=== PATIENT | female | born 1955 | race Hispanic/Latino ===

== ENCOUNTER 2016-05-11 18:52 | Emergency (ER) | payer SELFPAY ==
[2016-05-11 19:49] LABS: Basophils % (Auto) 0.7 % (0.0-1.8); Eosinophils % (Auto) 0.7 % (0.0-4.3); Hemoglobin 13.6 gm/dl (10.1-14.3); Mean Corpuscular HGB Conc 34 % (30-34); Mean Corpuscular Hemoglobin 30 pg (28-32); Mean Corpuscular Volume 87 fl (79-97); Platelet Count 248 K/mm3 (140-440); Red Blood Count 4.59 M/mm3 (3.65-5.03); Red Cell Distribution Width 12.5 % (13.2-15.2); White Blood Count 12.3 K/mm3 (4.5-11.0)
[2016-05-11 20:11] LABS: Alanine Aminotransferase 13 units/L (7-56); Albumin/Globulin Ratio 1.4 %; Alkaline Phosphatase 143 units/L (35-129); BUN/Creatinine Ratio 8.75; Bilirubin,Total 0.4 mg/dL (0.1-1.2); Blood Urea Nitrogen 7 mg/dL (7-17); Calcium 8.9 mg/dL (8.4-10.2); Carbon Dioxide 21 mmol/L (22-30); Chloride 95.1 mmol/L (98-107); Creatine Kinase 51 units/L (30-135); Glucose 112 mg/dL (65-100); Lipase 30 units/L (13-60); Potassium 3.1 mmol/L (3.6-5.0); Sodium 134 mmol/L (137-145); Total Protein 6.8 g/dL (6.3-8.2)
[2016-05-11 20:13] LABS: Anion Gap 21 mmol/L
[2016-05-11] MEDS ORDERED: K-DUR PO ONE (20:31)
[2016-05-11] MEDS ORDERED: MORPHINE IV ONE (20:54)
[2016-05-11] MEDS ORDERED: ZOFRAN IV ONE (20:54)
[2016-05-11] MEDS ORDERED: NACL 0.9% 1000 ML 1,000 ML IV ONE (20:56)
[2016-05-11] MEDS ORDERED: ATIVAN IV ONE (20:56)
--- NOTE | 2016-05-11 20:59 | Emergency Department Report ---
ED Abdominal Pain HPI - General Chief Complaint: Abdominal Pain Stated Complaint: SHAKING Time Seen by Provider: 05/11/16 20:26 Source: patient Mode of arrival: Wheelchair Limitations: No Limitations - History of Present Illness Initial Comments: 61 yo female with a past medical history of GERD, thyroid cancer, hypertension, previous cholecystectomy, appendectomy, thyroidectomy, and C-sections surgery presents to the hospital complaints of abdominal pain 1 week. Patient thinks that symptoms associated with her metoprolol. She has been on metoprolol for the past 5-6 weeks. Last week one hour after taking the medication she developed severe abdominal pain, nausea, tremors, and lightheadedness. Patient last took metoprolol 4 days ago that she thought the symptoms were caused by the medication. She continues to have symptoms despite stopping the medication. Patient appears anxious. She complains of sharp chest pain worse with movement. She feels a tight band around her upper abdomen area with maximum tenderness in the epigastric area. To also have a constant intermittent sharp generalized abdominal pain. Decreased by mouth intake secondary to nausea. She denies vomiting, diarrhea, melena, hematochezia. Patient states she's having intermittent episodes of shaking. PMD Franco Campbell She was recently admitted here March 22 the by me for chest pain. Diagnosis of GERD. Known hiatal hernia as well. Stress test was negative. Patient states she was not prescribed a PPI or H2 divine for has been taking ranitidine [id number] intermittently since discharge. - Related Data Home Medications Medication Instructions Recorded Confirmed Last Taken Levothyroxine [Synthroid] 200 mcg PO QAM 03/23/16 03/23/16 03/22/16 Losartan/Hydrochlorothiazide 1 each PO DAILY 03/23/16 03/23/16 03/22/16 [Losartan-Hctz 50-12.5 mg Tab] Previous Rx's Medication Instructions Recorded Last Taken Type Aspirin [Aspirin BABY CHEW TAB] 81 mg PO QDAY #30 tab.chew 03/23/16 Unknown Rx ALPRAZolam [Xanax TAB] 0.5 mg PO TID PRN #10 tab 05/11/16 Unknown Rx Ondansetron [Zofran Odt] 4 mg PO Q8HR PRN #20 tab.rapdis 05/11/16 Unknown Rx oxyCODONE /ACETAMINOPHEN [Percocet 1 tab PO Q6HR PRN #20 tablet 05/11/16 Unknown Rx 5/325] Potassium Chloride [K-Dur] 20 meq PO QDAY #3 tablet 05/12/16 Unknown Rx Allergies Allergy/AdvReac Type Severity Reaction Status Date / Time codeine Allergy Angioedema Verified 02/11/16 13:46 ED Review of Systems ROS: Stated complaint: SHAKING Other details as noted in HPI Comment: All other systems reviewed and negative Other: Constitutional: No fevers chills Eyes: No eye pain visual changes ENT: No ear pain or throat pain Neck: Denies pain Respiratory: Denies cough wheezing shortness of breath Cardiovascular: Denies palpitations GI: As per HPI : Denies dysuria Musculoskeletal: Denies back pain, joint swelling Skin: Denies rash, lesions, erythema Neurologic: Denies headache, numbness, weakness. reports intermittent tremor and shaking Psychiatric: Anxious Hematological/lymphatic: Denies easy bruising, lymphadenopathy ED Past Medical Hx - Past Medical History Hx Hypertension: Yes Hx Congestive Heart Failure: No Hx Diabetes: No Hx GERD: Yes Hx Asthma: No Hx COPD: No - Surgical History Hx Appendectomy: Yes Additional Surgical History: Gallbladder, thyroid, hysterectomy, - Social History Smoking Status: Former Smoker - Medications Home Medications: Home Medications Medication Instructions Recorded Confirmed Last Taken Type Aspirin [Aspirin BABY CHEW TAB] 81 mg PO QDAY #30 tab.chew 03/23/16 Unknown Rx Levothyroxine [Synthroid] 200 mcg PO QAM 03/23/16 03/23/16 03/22/16 History Losartan/Hydrochlorothiazide 1 each PO DAILY 03/23/16 03/23/16 03/22/16 History [Losartan-Hctz 50-12.5 mg Tab] ALPRAZolam [Xanax TAB] 0.5 mg PO TID PRN #10 tab 05/11/16 Unknown Rx Ondansetron [Zofran Odt] 4 mg PO Q8HR PRN #20 tab.rapdis 05/11/16 Unknown Rx oxyCODONE /ACETAMINOPHEN [Percocet 1 tab PO Q6HR PRN #20 tablet 05/11/16 Unknown Rx 5/325] Potassium Chloride [K-Dur] 20 meq PO QDAY #3 tablet 05/12/16 Unknown Rx ED Physical Exam - General Limitations: No Limitations - Other Other exam information: General: No limitations, patient is alert in no acute distress Head exam: Atraumatic, normocephalic Eyes exam: Normal appearance, pupils equal reactive to light, extraocular movements intact ENT: Moist mucous membrane, normal oropharynx Neck exam: Normal inspection, full range of motion, no meningismus nontender Respiratory exam: Clear to auscultation bilateral, no wheezes, rales, crackles Cardiovascular: Normal rate and rhythm, normal heart sounds Abdomen: Soft, nondistended, generalized abdominal tenderness greatest in the epigastric area, with normal bowel sounds, no rebound, or guarding Extremity: Full range of motion normal inspection no deformity Back: Normal Inspection, full range of motion, no tenderness Neurologic: Alert, oriented x3, cranial nerves intact, no motor or sensory deficit ,no tremor noted Psychiatric: Anxious Skin: Warm, dry, intact ED Course Vital Signs 05/11/16 05/11/16 19:10 20:35 Temperature 97.5 F L 97.5 F L Pulse Rate 98 H 73 Respiratory 22 20 Rate Blood Pressure 145/85 O2 Sat by Pulse 98 95 Oximetry - Reevaluation(s) Reevaluation #1: 05/11/16 21:20 Morphine, Zofran, Ativan, and normal saline ordered. CT pending Reevaluation #2: 05/12/16 00:02 Mag given and PO potassium given for mild hypokalmia/hypo mag ED Medical Decision Making - Lab Data Result diagrams: 05/11/16 19:30 05/11/16 19:30 Lab Results 05/11/16 05/11/16 05/11/16 Range/Units 19:30 19:30 19:30 WBC 12.3 H (4.5-11.0) K/mm3 RBC 4.59 (3.65-5.03) M/mm3 Hgb 13.6 (10.1-14.3) gm/dl Hct 40.0 (30.3-42.9) % MCV 87 (79-97) fl MCH 30 (28-32) pg MCHC 34 (30-34) % RDW 12.5 L (13.2-15.2) % Plt Count 248 (140-440) K/mm3 Lymph % (Auto) 19.0 (13.4-35.0) % [place] % (Auto) 6.6 (0.0-7.3) % Eos % (Auto) 0.7 (0.0-4.3) % Baso % (Auto) 0.7 (0.0-1.8) % Lymph # 2.3 (1.2-5.4) K/mm3 [place] # 0.8 (0.0-0.8) K/mm3 Eos # 0.1 (0.0-0.4) K/mm3 Baso # 0.1 (0.0-0.1) K/mm3 Seg Neutrophils % 73.0 H (40.0-70.0) % Seg Neutrophils # 9.0 H (1.8-7.7) K/mm3 Sodium 134 L (137-145) mmol/L Potassium 3.1 L (3.6-5.0) mmol/L Chloride 95.1 L (98-107) mmol/L Carbon Dioxide 21 L (22-30) mmol/L Anion Gap 21 mmol/L BUN 7 (7-17) mg/dL Creatinine 0.8 (0.7-1.2) mg/dL Estimated GFR > 60 ml/min BUN/Creatinine Ratio 8.75 % Glucose 112 H (65-100) mg/dL Calcium 8.9 (8.4-10.2) mg/dL Magnesium (1.7-2.3) mg/dL Total Bilirubin 0.4 (0.1-1.2) mg/dL AST 15 (5-40) units/L ALT 13 (7-56) units/L Alkaline Phosphatase 143 H (35-129) units/L Total Creatine Kinase 51 (30-135) units/L CK-MB (CK-2) 1.0 (0.0-4.0) ng/mL CK-MB (CK-2) Rel Index 1.9 (0-4) Troponin T < 0.010 (0.00-0.029) ng/mL Total Protein 6.8 (6.3-8.2) g/dL Albumin 4.0 (3.9-5) g/dL Albumin/Globulin Ratio 1.4 % Lipase 30 (13-60) units/L Urine Color (Yellow) Urine Turbidity (Clear) Urine pH (5.0-7.0) Ur Specific [place] (1.003-1.030) Urine Protein (Negative) mg/dL Urine Glucose (UA) (Negative) mg/dL Urine Ketones (Negative) mg/dL Urine Blood (Negative) Urine Nitrite (Negative) Urine Bilirubin (Negative) Urine Urobilinogen (<2.0) mg/dL Ur Leukocyte Esterase (Negative) Urine WBC (Auto) (0.0-6.0) /HPF Urine RBC (Auto) (0.0-6.0) /HPF U Epithel Cells (Auto) (0-13.0) /HPF Urine Bacteria (Auto) (Negative) /HPF 05/11/16 05/11/16 Range/Units 19:30 22:13 WBC (4.5-11.0) K/mm3 RBC (3.65-5.03) M/mm3 Hgb (10.1-14.3) gm/dl Hct (30.3-42.9) % MCV (79-97) fl MCH (28-32) pg MCHC (30-34) % RDW (13.2-15.2) % Plt Count (140-440) K/mm3 Lymph % (Auto) (13.4-35.0) % [place] % (Auto) (0.0-7.3) % Eos % (Auto) (0.0-4.3) % Baso % (Auto) (0.0-1.8) % Lymph # (1.2-5.4) K/mm3 [place] # (0.0-0.8) K/mm3 Eos # (0.0-0.4) K/mm3 Baso # (0.0-0.1) K/mm3 Seg Neutrophils % (40.0-70.0) % Seg Neutrophils # (1.8-7.7) K/mm3 Sodium (137-145) mmol/L Potassium (3.6-5.0) mmol/L Chloride (98-107) mmol/L Carbon Dioxide (22-30) mmol/L Anion Gap mmol/L BUN (7-17) mg/dL Creatinine (0.7-1.2) mg/dL Estimated GFR ml/min BUN/Creatinine Ratio % Glucose (65-100) mg/dL Calcium (8.4-10.2) mg/dL Magnesium 1.6 L (1.7-2.3) mg/dL Total Bilirubin (0.1-1.2) mg/dL AST (5-40) units/L ALT (7-56) units/L Alkaline Phosphatase (35-129) units/L Total Creatine Kinase (30-135) units/L CK-MB (CK-2) (0.0-4.0) ng/mL CK-MB (CK-2) Rel Index (0-4) Troponin T (0.00-0.029) ng/mL Total Protein (6.3-8.2) g/dL Albumin (3.9-5) g/dL Albumin/Globulin Ratio % Lipase (13-60) units/L Urine Color Straw (Yellow) Urine Turbidity Clear (Clear) Urine pH 7.0 (5.0-7.0) Ur Specific [place] 1.004 (1.003-1.030) Urine Protein <15 mg/dl (Negative) mg/dL Urine Glucose (UA) Neg (Negative) mg/dL Urine Ketones Neg (Negative) mg/dL Urine Blood Neg (Negative) Urine Nitrite Neg (Negative) Urine Bilirubin Neg (Negative) Urine Urobilinogen < 2.0 (<2.0) mg/dL Ur Leukocyte Esterase Neg (Negative) Urine WBC (Auto) 2.0 (0.0-6.0) /HPF Urine RBC (Auto) 1.0 (0.0-6.0) /HPF U Epithel Cells (Auto) 1.0 (0-13.0) /HPF Urine Bacteria (Auto) 1+ (Negative) /HPF - Radiology Data Radiology results: report reviewed CT abdomen and pelvis IV contrast: No acute findings. Bilateral renal cysts with 11 mm dense cyst in the left kidney. See report for other incidental findings - Medical Decision Making No acute intra-abdominal pathology identified. Patient to recent negative cardiac workup during admission. Patient also has unremarkable labs and urine. Mildly joint abnormalities were treated. Outpatient follow-up will be advised him to discontinue metoprolol. Copy of CT provided for monitoring of kidney cysts - Differential Diagnosis medication reaction, gastroenteritis, pud, mi, anxiety Critical Care Time: No Critical care attestation.: If time is entered above; I have spent that time in minutes in the direct care of this critically ill patient, excluding procedure time. ED Disposition Clinical Impression: Adverse effects of medication, Hypertension, GERD (gastroesophageal reflux disease), Hypokalemia, Hypomagnesemia Abdominal pain Qualifiers: Abdominal location: epigastric Qualified Code(s): R10.13 - Epigastric pain Disposition: DISCHARGED TO HOME OR SELFCARE Is pt being admited?: No Does the pt Need Aspirin: No Condition: Stable Instructions: Abdominal Pain (ED), Hypertension (ED), Hypokalemia (ED) Additional Instructions: Continue the current medication as prescribed with the exception of metoprolol. Take the new medication as prescribed. Return if symptoms worsen. Follow-up with your primary care doctor for further assessment and monitoring of your renal cyst. Take the ct report provided to your Follow-up with the GI doctor provided if symptoms continue despite discontinuing the metoprolol. You are also prescribed Xanax for her intermittent tremors and anxious feeling. Take as needed. Prescriptions: ALPRAZolam [Xanax TAB] 0.5 mg PO TID PRN #10 tab PRN Reason: Anxiety Ondansetron [Zofran Odt] 4 mg PO Q8HR PRN #20 tab.rapdis PRN Reason: Nausea And Vomiting oxyCODONE /ACETAMINOPHEN [Percocet 5/325] 1 tab PO Q6HR PRN #20 tablet PRN Reason: Pain , Severe (7-10) Potassium Chloride [K-Dur] 20 meq PO QDAY #3 tablet Referrals: FRANCO CAMPBELL MD [Staff Physician] - 3-5 Days JOSE GONZALEZ MD [Staff Physician] - 3-5 Days (GI) Time of Disposition: 00:02 (d/c when mag complete)
[2016-05-11] MEDS ORDERED: NACL ONE (21:02)
[2016-05-11] MEDS ORDERED: MAGNESIUM SULFATE 2GM/50ML 2 GM/50 ML BAG IV ONE (22:00)
[2016-05-11 22:49] LABS: Bacteria,Urine 1+ /HPF (Negative); Bilirubin,Urine NEG (Negative); Blood,Urine NEG (Negative); Ketones,Urine NEG (Negative); Leukocyte Esterase,Urine NEG (Negative); Nitrite,Urine NEG (Negative); Protein,Urine <15 mg/dL mg/dL (Negative); Urobilinogen,Urine < 2.0 mg/dL (<2.0)
--- NOTE | 2016-05-11 23:32 | Cat Scan Report ---
FINAL REPORT PROCEDURE: CT ABDOMEN PELVIS W CON TECHNIQUE: Computerized axial tomography of the abdomen and pelvis was performed after the IV injection of iodinated nonionic contrast. HISTORY: abd pain nausea COMPARISON: No prior studies are available for comparison. FINDINGS: Visualized lower thorax: There is a 17 millimeter calcified granuloma at the right lung base.. Liver: Normal size and attenuation. Spleen: Normal size and attenuation. There are calcified granulomas at spleen. Gallbladder and biliary system: There has been a cholecystectomy. Bile ducts are slightly dilated. Pancreas: Normal. Adrenals: Normal. Kidneys: There are bilateral kidney cysts. There is an enhancing or dense nodule in the midpole of the left kidney measuring 11 millimeters which could be a hemorrhagic cyst although solid lesion not excluded. MRI may be helpful.. GI tract: There has been an appendectomy. There is no bowel obstruction, colitis or enteritis. There are diverticula of colon.. Lymph nodes and mesentery: Normal. Vasculature: There is calcified plaque in the abdominal aorta. There is no aneurysm.. Bladder: Normal. Reproductive organs: There has been a hysterectomy.. Peritoneum: There is no ascites, free air, abscess or adenopathy.. Musculoskeletal structures: No significant abnormality. Other: There been ventral hernia repair. Mesh is intact.. IMPRESSION: There has been a cholecystectomy. Bile ducts are slightly dilated. There are bilateral kidney cysts. There is an enhancing or dense nodule in the midpole of the left kidney measuring 11 millimeters which could be a hemorrhagic cyst although solid lesion not excluded. MRI may be helpful.. There has been an appendectomy. There is no bowel obstruction, colitis or enteritis. There are diverticula of colon.. There has been a hysterectomy.. There is no ascites, free air, abscess or adenopathy.. There been ventral hernia repair. Mesh is intact..
[2016-05-12 01:47] VITALS: BP 129/75
== END 2016-05-12 01:30 | disposition home or self-care (01) ==
LOC: ED 18:52
DX: T44.7X5A Adverse effect of beta-adrenoreceptor antagonists, initial encounter (principal); K21.9 Gastro-esophageal reflux disease without esophagitis; I10 Essential (primary) hypertension; E87.6 Hypokalemia; E83.42 Hypomagnesemia; Z90.49 Acquired absence of other specified parts of digestive tract; Z90.710 Acquired absence of both cervix and uterus; Z85.850 Personal history of malignant neoplasm of thyroid; Z87.891 Personal history of nicotine dependence; Y92.89 Other specified places as the place of occurrence of the external cause; Z88.6 Allergy status to analgesic agent
CPT/HCPCS: 36415; 74177; 80053; 81001; 82550; 82553; 83690; 83735; 84484; 85025; 93005; 93010; 96361; 96365; 96375; 99284; J2060; J2270; J2405; J3475; J7030; Q9967